=== PATIENT | male | born 1990 | race American Indian/Alaskan Native ===

== ENCOUNTER 2017-06-17 19:36 | Emergency (ER) | payer OTHER ==
[2017-06-17 19:56] VITALS: RESP 18
[2017-06-17 21:10] LABS: URINE BILIRUBIN NEGATIVE (NEGATIVE); URINE BLOOD NEGATIVE (NEGATIVE); URINE GLUCOSE (UA) NEGATIVE (NEGATIVE); URINE KETONE TRACE mg/dL (NEGATIVE); URINE LEUKOCYTE ESTERASE NEGATIVE Leu/uL (NEGATIVE); URINE PROTEIN NEGATIVE mg/dL (<30 mg/dL)
[2017-06-17 21:13] LABS: URINE APPEARANCE CLEAR (CLEAR); URINE COLOR LIGHT YELLOW (YELLOW)
--- NOTE | 2017-06-17 21:47 | CT ---
EXAM: CT Thoracic Spine Without Intravenous Contrast EXAM DATE/TIME: 06/17/2017 8:28 PM CLINICAL HISTORY: 27 years old, male; Injury or trauma; Fall; Follow-up exam; Abrasion; Additional info: Fall from height TECHNIQUE: Axial computed tomography images of the thoracic spine without intravenous contrast. All CT scans at this facility use one or more dose reduction techniques, viz.: automated exposure control; ma/kV adjustment per patient size (including targeted exams where dose is matched to indication; i.e. head); or iterative reconstruction technique. Coronal and sagittal reformatted images were created and reviewed. COMPARISON: No relevant prior studies available. FINDINGS: Vertebrae: C7, T1-T8 vertebral bodies are normal in height and configuration. T10 and T12 are normal in height and configuration. There are compression fractures at T9, T11 and L1 with deformity of the superior endplates and anterior cortices. Discs/spinal canal/neural foramina: Disc spaces are maintained. Facet joints align anatomically. Posterior elements are intact at all levels. Adjacent posterior ribs are intact. Soft tissues: There is minimal dependent atelectasis in the visualized lungs. There is minimal paraspinous soft tissue swelling T9-T11 and L1. No acute retroperitoneal abnormalities are identified IMPRESSION: Compression fractures T9, T11 and L1 with minimal deformity of the superior endplates and anterior vertebral bodies, no extension into the posterior elements, no retropulsed fragments
--- NOTE | 2017-06-17 21:49 | ED PDOC ---
Arrival/HPI - General Chief Complaint: Trauma Time Seen by Provider: 06/17/17 19:58 Historian: Patient - History of Present Illness Narrative History of Present Illness (Text): 06/17/17 21:45 27-year-old male presents today with a 2 week history of mid and lower back pain. Patient states 2 weeks ago he was in a tough moderate and fell from the top of an obstacle landing on his back and hitting his head. Patient states at that time he was seen by physicians on site and no stitches were needed. Patient at this time denies headache dizziness or weakness. Denies fevers or chills. He denies neck pain. Patient denies abdominal pain. No nausea or vomiting. He denies bladder or bowel incontinence. Denies numbness weakness or tingling in the lower extremities. Patient states over the past 2 weeks the pain in the back has been gradually worsening. Patient states if he is sitting still the pain is minimal but if he tries to jump or move quickly he develops pain in the back that feels as if the bones are crushing. Patient states he's taken some [id number] medications and some lidocaine to the back without improvement of his symptoms. Patient denies any urinary symptoms. Time/Duration: > week (2 weeks) Symptom Onset: Gradual Symptom Course: Worsening Quality: Aching, Stabbing Severity Level: 6 Past Medical History - Provider Review Nursing Documentation Reviewed: Yes - Travel History Have you recently traveled outside [place] w/in the past 3 mons?: No - Infectious Disease Hx of Infectious Diseases: None - Tetanus Immunization Tetanus Immunization: Unknown - Psychiatric Hx Substance Use: No - Anesthesia Hx Anesthesia: No Family/Social History - Physician Review Nursing Documentation Reviewed: Yes Family/Social History: Unknown Family HX Smoking Status: Never Smoked Hx Alcohol Use: Yes (Monthly) Frequency of alcohol use: Socially Hx Substance Use: No Allergies/Home Meds Allergies/Adverse Reactions: Allergies No Known Allergies Allergy (Verified 06/17/17 20:19) Review of Systems - Review of Systems Constitutional: absent: Fatigue, Fevers Respiratory: absent: SOB, Cough Cardiovascular: absent: Chest Pain, Palpitations Gastrointestinal: absent: Abdominal Pain, Nausea, Vomiting Genitourinary Male: absent: Dysuria, Frequency, Hematuria, Urinary Output Changes Musculoskeletal: Back Pain. absent: Arthralgias, Neck Pain Skin: Laceration (healing laceration to scalp). absent: Rash, Pruritis Neurological: absent: Headache, Dizziness Psychiatric: absent: Anxiety, Depression Physical Exam Vital Signs Reviewed: Yes Vital Signs Temp Pulse Resp BP Pulse Ox 06/17/17 21:54 99 F 53 L 18 147/72 98 06/17/17 19:53 99.0 F 60 18 143/83 100 Temperature: Afebrile Blood Pressure: Normal Pulse: Regular Respiratory Rate: Normal Appearance: Positive for: Well-Appearing, Non-Toxic, Comfortable Pain Distress: None Mental Status: Positive for: Alert and Oriented X 3 - Systems Exam Head: Present: Other (scab noted to top of scalp; no erythema; no step offs. no tenderness. ) Mouth: Present: Moist Mucous Membranes Neck: Present: Normal Range of Motion. No: MIDLINE TENDERNESS, Paraspinal Tenderness Respiratory/Chest: Present: Clear to Auscultation, Good Air Exchange. No: Respiratory Distress, Accessory Muscle Use Cardiovascular: Present: Regular Rate and Rhythm, Normal S1, S2. No: Murmurs Abdomen: Present: Normal Bowel Sounds. No: Tenderness, Distention, Peritoneal Signs, Rebound, Guarding Back: Present: Normal Inspection, Midline Tenderness (+ thoracic and lumbar tenderness), Paraspinal Tenderness. No: Pain with Leg Raise Upper Extremity: Present: Normal Inspection, Normal ROM, Neurovascularly Intact Lower Extremity: Present: Normal Inspection, Normal ROM Neurological: Present: GCS=15, Speech Normal, Motor Func Grossly Intact, Normal Sensory Function, Gait Normal Skin: Present: Warm, Dry, Normal Color. No: Rashes Psychiatric: Present: Alert, Oriented x 3 Medical Decision Making ED Course and Treatment: 06/17/17 23:52 27yr old male with 2 week history of back pain s/p fall from height approx 15 feet. toradol IM flexeril PO ct lumbar spine;FINDINGS: Vertebrae: T12 at L2-L5 vertebral bodies are normal in height and configuration. There are compression fractures of T11 and L1. There is minimal superior endplate deformity. There is minimal deformity of the enters superior cortex. Posterior elements are intact at all levels. Facet joints align anatomically. Disc spaces are maintained. Spinous processes align in the expected fashion. Sacroiliac joints are patent. Sacrum is intact. Bony mineralization is normal. Discs/spinal canal/neural foramina: see above Soft tissues: No acute abnormalities are seen in the retroperitoneum.Psoas and paraspinous muscles are symmetric. IMPRESSION: Compression fractures with mild deformity T11 and L1 Ct thoracic spine; FINDINGS: Vertebrae: C7, T1-T8 vertebral bodies are normal in height and configuration. T10 and T12 are normal in height and configuration. There are compression fractures at T9, T11 and L1 with deformity of the superior endplates and anterior cortices. Discs/spinal canal/neural foramina: Disc spaces are maintained. Facet joints align anatomically. Posterior elements are intact at all levels. Adjacent posterior ribs are intact. Soft tissues: There is minimal dependent atelectasis in the visualized lungs. There is minimal paraspinous soft tissue swelling T9-T11 and L1. No acute retroperitoneal abnormalities are identified IMPRESSION: Compression fractures T9, T11 and L1 with minimal deformity of the superior endplates and anterior vertebral bodies, no extension into the posterior elements, no retropulsed fragments case discussed with dr. Sawyer neurosurgeon in depth; discussed ct findings of T9, T11 and L1 compression fracture minimal deformity of the superior endplates and anterior vertebral bodies, no extension into the posterior elements, no retropulsed fragments. HE advised giving the patient a TLSO brace, pain medications and have the patient f/u in the office. i have discussed all results in depth with patient; stressed importance of getting TLSO back brace tomorrow. stressed importance of f/u with neurosurgeon. advised immediate return if symptoms worsen,persist or if new symptoms develop. A prescription for a TLSO back brace was given to the patient. Patient verbalizes understanding of discharge instructions and need for immediate followup. all aspects of this case were discussed the attending of record. impression; compression fractures, lumbar spine, thoracic spine Motrin every 6 hours as needed for pain Flexeril one tablet every 8 hours as needed for muscle spasms Percocet 1 tablet every 6 hours as needed for moderate to severe painful and may cause drowsiness Use TLSO back brace Follow-up with the neurosurgeon within the next 2 days Follow-up with a primary care physician within the next 2 days Return immediately if symptoms worsen persist or if new concerning symptoms develop - Lab Interpretations Lab Results: Lab Results 06/17/17 20:30: Urine Color Light yellow, Urine Appearance Clear, Urine pH 7.0, Ur Specific [place] 1.020, Urine Protein Negative, Urine Glucose (UA) Negative, Urine Ketones Trace H, Urine Blood Negative, Urine Nitrate Negative, Urine Bilirubin Negative, Urine Urobilinogen 1.0 H, Ur Leukocyte Esterase Negative - RAD Interpretation Radiology Orders: 06/17/17 20:28 LUMBAR SPINE W/O CONTRAST [CT] Stat THORACIC SPINE W/O CONT [CT] Stat - Medication Orders Current Medication Orders: Discontinued Medications Cyclobenzaprine HCl (Flexeril) 10 mg PO STAT STA Stop: 06/17/17 20:29 Last Admin: 06/17/17 20:43 Dose: 10 mg Ketorolac Tromethamine (Toradol) 60 mg IM STAT STA Stop: 06/17/17 20:29 Last Admin: 06/17/17 20:45 Dose: 60 mg MAR Pain Assessment Document 06/17/17 20:45 JA (Rec: 06/17/17 20:46 JA [id number][facility] Pain Reassessment Is this a pain reassessment? Yes Presence of Pain Presence of Pain Yes Pain Scale Used Pain Scale Used Numeric Location Pain Location Body Site Back Description Intensity of Pain at present 7 Pain Behavior Guarding Aggravating Factors ADL's Changing Position Exercise/Activity Alleviating Factors Sitting IM Administration Charges Document 06/17/17 20:45 JA (Rec: 06/17/17 20:46 JA [id number]) Injection Site MAR Injection Site Right Deltoid Charges for Administration # of IM Administrations 1 Disposition/Present on Arrival - Present on Arrival Any Indicators Present on Arrival: No History of DVT/PE: No History of Uncontrolled Diabetes: No Urinary Catheter: No History of Decub. Ulcer: No History Surgical Site Infection Following: None - Disposition Have Diagnosis and Disposition been Completed?: Yes Diagnosis: Traumatic compression fracture of T9 thoracic vertebra, Traumatic compression fracture of T11 thoracic vertebra, Compression fracture of L1 lumbar vertebra Disposition: HOME/ ROUTINE Disposition Time: 23:30 Patient Plan: Discharge Condition: GOOD Discharge Instructions (ExitCare): Vertebral Compression Fracture (ED) Additional Instructions: Motrin every 6 hours as needed for pain Flexeril one tablet every 8 hours as needed for muscle spasms Percocet 1 tablet every 6 hours as needed for moderate to severe painful and may cause drowsiness Use TLSO back brace Follow-up with the neurosurgeon within the next 2 days Follow-up with a primary care physician within the next 2 days Return immediately if symptoms worsen persist or if new concerning symptoms develop Prescriptions: Cyclobenzaprine [Cyclobenzaprine HCl] 10 mg PO Q8 #10 tab Ibuprofen [Motrin] 600 mg PO Q6H PRN #20 tab PRN Reason: pain/fever reduction oxyCODONE/Acetaminophen [Percocet 5/325 mg Tab] 1 tab PO Q6H PRN #20 tab PRN Reason: moderate to severe pain Referrals: Dov Sawyer MD [Staff Provider] - Follow up with primary Ollie Manjarrez MD [Staff Provider] - Follow up with primary Eri Cutler MD [Staff Provider] - Follow up with primary [facility] [Outside] - Follow up with primary Forms: [employer] ([place])
--- NOTE | 2017-06-17 21:51 | CT ---
EXAM: CT Lumbar Spine Without Intravenous Contrast EXAM DATE/TIME: 06/17/2017 8:28 PM CLINICAL HISTORY: 27 years old, male; Injury or trauma; Fall; Initial encounter; Abrasion; Additional info: Fall from height/back pain TECHNIQUE: Axial computed tomography images of the lumbar spine without intravenous contrast. All CT scans at this facility use one or more dose reduction techniques, viz.: automated exposure control; ma/kV adjustment per patient size (including targeted exams where dose is matched to indication; i.e. head); or iterative reconstruction technique. Coronal and sagittal reformatted images were created and reviewed. COMPARISON: There are no prior studies for comparison. FINDINGS: Vertebrae: T12 at L2-L5 vertebral bodies are normal in height and configuration. There are compression fractures of T11 and L1. There is minimal superior endplate deformity. There is minimal deformity of the enters superior cortex. Posterior elements are intact at all levels. Facet joints align anatomically. Disc spaces are maintained. Spinous processes align in the expected fashion. Sacroiliac joints are patent. Sacrum is intact. Bony mineralization is normal. Discs/spinal canal/neural foramina: see above Soft tissues: No acute abnormalities are seen in the retroperitoneum.Psoas and paraspinous muscles are symmetric. IMPRESSION: Compression fractures with mild deformity T11 and L1
[2017-06-17 21:55] VITALS: TEMP 99
[2017-06-18 00:30] VITALS: BP 141/99; PULSE 66; O2SAT 100
== END 2017-06-18 00:31 | disposition home or self-care (01) ==
LOC: ED 19:36
DX: S22.079A Unspecified fracture of T9-T10 vertebra, initial encounter for closed fracture (principal); S22.089A Unspecified fracture of T11-T12 vertebra, initial encounter for closed fracture; S32.019A Unspecified fracture of first lumbar vertebra, initial encounter for closed fracture; W17.89XA Other fall from one level to another, initial encounter
CPT/HCPCS: 72128; 72131; 81003; 96372; 99285; J1885